=== PATIENT | male | born 1965 | race African-American/Black ===

== ENCOUNTER 2021-06-08 19:20 | Emergency (ER) | END 2021-06-08 23:15 | disposition home or self-care (01) | LOC: ERS 19:20 | DX: J18.9 Pneumonia, unspecified organism (principal); K21.9 Gastro-esophageal reflux disease without esophagitis; I10 Essential (primary) hypertension | CPT/HCPCS: 71045 ==

== ENCOUNTER 2021-06-12 14:59 | Emergency (ER) | END 2021-06-12 17:32 | disposition home or self-care (01) | LOC: ERS 14:59 | DX: J18.9 Pneumonia, unspecified organism (principal); I10 Essential (primary) hypertension; K21.9 Gastro-esophageal reflux disease without esophagitis | CPT/HCPCS: 99283 ==

== ENCOUNTER 2021-07-24 19:50 | Emergency (ER) | payer SELFPAY ==
[2021-07-24] MEDS ORDERED: Dicyclomine 20 MG TAB ONE (20:37)
[2021-07-24] MEDS ORDERED: Mag-Al 1200 mg/1200 mg/30 ML UDCUP ONE (20:40)
[2021-07-24 20:59] LABS: #Basophils 0.1 thou/uL (0.0-0.2); #Eosinphils 0.1 thou/uL (0.0-0.7); #Lymphocytes 2.3 thou/uL (1.20-3.40); #Monocytes 0.6 thou/uL (0.11-0.59); %Basophils 0.8 % (0.0-1.0); %Eosinophils 1.4 % (0.0-10.0); %Lymphocytes 24.9 % (21.0-51.0); %Monocytes 6.8 % (0.0-10.0); %Neutrophils 66.1 % (42.0-75.0); Hemoglobin 13.9 g/dL (14.0-18.0); Mean Corpuscular Hemoglobin 31.9 pg (27.0-31.0); Mean Corpuscular Volume 96.7 fL (78.0-98.0); Mean Platelet Volume 8.3 fL (7.4-10.4); Platelet Count 253 thou/uL (130-400); RBC Distribution Width 15.9 % (11.5-14.5); Red Blood Cell (RBC) Count 4.34 mill/uL (4.70-6.10)
[2021-07-24 21:56] LABS: ALT (SGPT) 36 U/L (8-55); AST (SGOT) 34 U/L (5-34); Albumin 3.4 g/dL (3.5-5.0); Alkaline Phosphatase 48 U/L (40-110); Anion Gap 15 mmol/L (10-20); BUN (Urea Nitrogen) 17 mg/dL (8.4-25.7); Bilirubin, Total 0.7 mg/dL (0.2-1.2); Calc. Creatinine Clearance 0 mL/min (70-130); Calcium 8.4 mg/dL (7.8-10.44); Carbon Dioxide 20 mmol/L (22-29); Chloride 108 mmol/L (98-107); Globulin 2.1 g/dL (2.4-3.5); Glucose 116 mg/dL (70-105); Potassium 3.4 mmol/L (3.5-5.1); Protein, Total 5.5 g/dL (6.0-8.3); Sodium 140 mmol/L (136-145)
== END 2021-07-24 22:26 | disposition home or self-care (01) ==
LOC: ERS 19:50
DX: K21.9 Gastro-esophageal reflux disease without esophagitis (principal); I10 Essential (primary) hypertension
CPT/HCPCS: 36415; 80053; 83690; 85025; 99284

== ENCOUNTER 2021-09-14 08:49 | Emergency (ER) | payer SELFPAY ==
[2021-09-14] MEDS ORDERED: Famotidine 20 MG TAB ONE (10:44)
[2021-09-14] MEDS ORDERED: Lisinopril 10 MG TAB ONE (10:44)
[2021-09-14] MEDS ORDERED: Aspirin 81 mg Enteric Coated Tablet ONE (10:44)
[2021-09-14 10:55] LABS: #Eosinphils 0.1 thou/uL (0.0-0.7); #Lymphocytes 1.8 thou/uL (1.20-3.40); #Monocytes 0.5 thou/uL (0.11-0.59); #Neutrophils 5.6 thou/uL (1.40-6.50); %Basophils 0.4 % (0.0-1.0); %Eosinophils 1.4 % (0.0-10.0); %Lymphocytes 22.3 % (21.0-51.0); %Neutrophils 69.9 % (42.0-75.0); Hemoglobin 14.2 g/dL (14.0-18.0); Mean Corpuscular HGB CONC 32.7 g/dL (32.0-36.0); Mean Corpuscular Hemoglobin 31.4 pg (27.0-31.0); Mean Corpuscular Volume 96.1 fL (78.0-98.0); Mean Platelet Volume 8.6 fL (7.4-10.4); Platelet Count 220 thou/uL (130-400); RBC Distribution Width 14.9 % (11.5-14.5); Red Blood Cell (RBC) Count 4.54 mill/uL (4.70-6.10)
[2021-09-14 11:30] LABS: ALT (SGPT) 22 U/L (8-55); AST (SGOT) 29 U/L (5-34); Albumin 3.1 g/dL (3.5-5.0); Alkaline Phosphatase 57 U/L (40-110); Anion Gap 11 mmol/L (10-20); BUN (Urea Nitrogen) 14 mg/dL (8.4-25.7); Bilirubin, Total 0.6 mg/dL (0.2-1.2); Calc. Creatinine Clearance 0 mL/min (70-130); Calcium 8.2 mg/dL (7.8-10.44); Carbon Dioxide 24 mmol/L (22-29); Chloride 108 mmol/L (98-107); Glucose 107 mg/dL (70-105); Potassium 3.7 mmol/L (3.5-5.1); Protein, Total 5.1 g/dL (6.0-8.3); Sodium 139 mmol/L (136-145)
[2021-09-14 11:46] LABS: CKMB 2.5 ng/mL (0-6.6)
== END 2021-09-14 12:45 | disposition left against medical advice (07) ==
LOC: ERS 08:49
DX: I12.9 Hypertensive chronic kidney disease with stage 1 through stage 4 chronic kidney disease, or unspecified chronic kidney disease (principal); N18.9 Chronic kidney disease, unspecified; R77.8 Other specified abnormalities of plasma proteins; K21.9 Gastro-esophageal reflux disease without esophagitis; Z79.899 Other long term (current) drug therapy
CPT/HCPCS: 36415; 71045; 80053; 82553; 84484; 85025; 93005

== ENCOUNTER 2021-09-14 14:28 | Inpatient (IN) | payer SELFPAY ==
[2021-09-14] MEDS ORDERED: Labetalol HCl 100 MG/20 ML VIAL ONE (15:02)
[2021-09-14 15:52] LABS: Troponin I 0.033 ng/mL (< 0.028)
[2021-09-14] MEDS ORDERED: Ondansetron PF 4 MG/2 ML Vial ONE (16:35)
[2021-09-14] MEDS ORDERED: Ondansetron PF 4 MG/2 ML Vial IVP PRN (16:41)
[2021-09-14] MEDS ORDERED: Ondansetron ODT 4 MG TAB PO PRN (16:41)
[2021-09-14] MEDS ORDERED: Lidocaine 2% Viscous Solution 10 ML, Aluminum & Magnesium Hydroxide 30 ML SSW SCH (16:45)
[2021-09-14] MEDS ORDERED: Labetalol HCl 100 MG/20 ML VIAL SLOW IVP PRN (16:59)
[2021-09-14 17:42] VITALS: BMI 40.0
[2021-09-14] MEDS: Sodium Chloride 0.9% 1,000 ML IV SCH (18:43)
[2021-09-14 18:57] LABS: Hemoglobin A1c 7.6 % (4.0-6.0)
[2021-09-14 19:43] LABS: CKMB 2.7 ng/mL (0-6.6)
[2021-09-14] MEDS: Pantoprazole 40 MG VIAL IVP SCH (20:11)
[2021-09-14 20:27] LABS: SARS-CoV-2 NAA Rapid Test Not Detected (NotDetected)
[2021-09-14] MEDS ORDERED: Amlodipine 5 MG TAB PO SCH (21:00)
[2021-09-14 22:42] LABS: Troponin I 0.035 ng/mL (< 0.028)
[2021-09-15 04:30] LABS: #Basophils 0.1 thou/uL (0.0-0.2); #Eosinphils 0.1 thou/uL (0.0-0.7); #Lymphocytes 2.7 thou/uL (1.20-3.40); #Monocytes 0.6 thou/uL (0.11-0.59); #Neutrophils 5.4 thou/uL (1.40-6.50); %Basophils 0.6 % (0.0-1.0); %Eosinophils 1.2 % (0.0-10.0); %Lymphocytes 30.5 % (21.0-51.0); %Monocytes 6.7 % (0.0-10.0); %Neutrophils 60.9 % (42.0-75.0); Hemoglobin 14.2 g/dL (14.0-18.0); Mean Corpuscular HGB CONC 31.4 g/dL (32.0-36.0); Mean Corpuscular Hemoglobin 30.2 pg (27.0-31.0); Mean Corpuscular Volume 96.2 fL (78.0-98.0); Mean Platelet Volume 8.5 fL (7.4-10.4); Platelet Count 247 thou/uL (130-400); RBC Distribution Width 15.5 % (11.5-14.5); White Blood Cell (WBC) Count 8.8 thou/uL (4.8-10.8)
[2021-09-15 04:44] LABS: Anion Gap 10 mmol/L (10-20); BUN (Urea Nitrogen) 17 mg/dL (8.4-25.7); Calc. Creatinine Clearance 92 mL/min (70-130); Calcium 8.1 mg/dL (7.8-10.44); Carbon Dioxide 24 mmol/L (22-29); Cardiac Risk 4.2 (Less than 4.5); Chloride 109 mmol/L (98-107); Cholesterol 129 mg/dl (< 200 Desired); Glucose 101 mg/dL (70-105); HDL Cholesterol 31 mg/dL (>60 Neg Risk); LDL Cholesterol, Calculated 75 mg/dL; Potassium 3.7 mmol/L (3.5-5.1); Sodium 139 mmol/L (136-145); Triglycerides 114 mg/dL (Less than 150)
[2021-09-15] MEDS: Sodium Chloride 0.9% 1,000 ML IV SCH (07:59)
[2021-09-15] MEDS: Amlodipine 5 MG TAB PO SCH (07:59)
[2021-09-15] MEDS: Pantoprazole 40 MG VIAL IVP SCH ×2 (08:00→20:45)
[2021-09-15] MEDS ORDERED: Regadenoson 0.4 MG/5 ML SYRINGE ONE (09:28)
[2021-09-15] MEDS ORDERED: Atenolol 25 MG TAB PO SCH (15:45)
[2021-09-15] MEDS ORDERED: Dextrose 5% in Water 1,000 ML IV PRN (16:11)
[2021-09-15] MEDS ORDERED: HumaLOG 300 UNITS/3 ML VIAL SC PRN (16:11)
[2021-09-15] MEDS ORDERED: Dextrose 50% Abboject 50 ML SYRINGE SLOW IVP PRN (16:11)
[2021-09-16] MEDS: Sodium Chloride 0.9% 1,000 ML IV SCH (01:56)
[2021-09-16] MEDS ORDERED: Calcium Carbonate 500 MG ChewTAB PO SCH (02:00)
[2021-09-16] MEDS ORDERED: Atenolol 25 MG TAB PO SCH (09:00)
[2021-09-16] MEDS ORDERED: Lisinopril 10 MG TAB PO SCH (09:00)
[2021-09-16] MEDS ORDERED: Aspirin 81 mg Enteric Coated Tablet PO SCH (09:00)
[2021-09-16] MEDS: Amlodipine 5 MG TAB PO SCH (10:07)
[2021-09-16] MEDS: Pantoprazole 40 MG VIAL IVP SCH (10:09)
[2021-09-16 11:26] LABS: #Basophils 0.1 thou/uL (0.0-0.2); #Eosinphils 0.1 thou/uL (0.0-0.7); #Monocytes 0.6 thou/uL (0.11-0.59); #Neutrophils 5.6 thou/uL (1.40-6.50); %Basophils 0.7 % (0.0-1.0); %Eosinophils 0.8 % (0.0-10.0); %Lymphocytes 23.9 % (21.0-51.0); %Monocytes 6.7 % (0.0-10.0); %Neutrophils 67.9 % (42.0-75.0); Mean Corpuscular HGB CONC 32.6 g/dL (32.0-36.0); Mean Corpuscular Volume 95.3 fL (78.0-98.0); Mean Platelet Volume 8.3 fL (7.4-10.4); Platelet Count 253 thou/uL (130-400); RBC Distribution Width 15.4 % (11.5-14.5); Red Blood Cell (RBC) Count 4.82 mill/uL (4.70-6.10); White Blood Cell (WBC) Count 8.2 thou/uL (4.8-10.8)
[2021-09-16 11:42] LABS: Anion Gap 11 mmol/L (10-20); BUN (Urea Nitrogen) 17 mg/dL (8.4-25.7); Calc. Creatinine Clearance 98 mL/min (70-130); Calcium 8.2 mg/dL (7.8-10.44); Carbon Dioxide 22 mmol/L (22-29); Chloride 107 mmol/L (98-107); Glucose 104 mg/dL (70-105); Sodium 136 mmol/L (136-145)
[2021-09-16 12:19] VITALS: BP 149/100; TEMP 97.9
== END 2021-09-16 15:14 | disposition home or self-care (01) | DRG 305 ==
LOC: ERS 14:28 → 2SW 15:18 → OBSVTOIN 09-15 15:32
PROVIDERS: ADMIT Hospitalist; ATTEND Internal Medicine
DX: I16.1 Hypertensive emergency (principal); N17.9 Acute kidney failure, unspecified; I42.9 Cardiomyopathy, unspecified; I16.0 Hypertensive urgency; K21.9 Gastro-esophageal reflux disease without esophagitis; R07.9 Chest pain, unspecified; I10 Essential (primary) hypertension; E11.9 Type 2 diabetes mellitus without complications; Z20.822 Contact with and (suspected) exposure to COVID-19; Z91.14 Patient's other noncompliance with medication regimen; Z88.1 Allergy status to other antibiotic agents
CPT/HCPCS: 36415; 36416; 78452; 80048; 80061; 82553; 83036; 85025; 93005; 93017; 94760; 96374; 96375; 96376; A9500; C9113; G0378; J2405; J2785; J7050; U0002

== ENCOUNTER 2023-05-30 08:13 | Inpatient (IN) | payer SELFPAY ==
[2023-05-30] MEDS ORDERED: Acetaminophen 500 MG TAB ONE (08:48)
[2023-05-30] MEDS ORDERED: Ibuprofen 200 MG TAB ONE (08:48)
[2023-05-30] MEDS ORDERED: Ondansetron ODT 4 MG TAB ONE (08:49)
[2023-05-30 09:02] LABS: #Basophils 0.1 thou/uL (0.0-0.2); #Eosinphils 0.1 thou/uL (0.0-0.7); #Monocytes 0.5 thou/uL (0.11-0.59); %Basophils 0.6 % (0.0-1.0); %Eosinophils 0.6 % (0.0-10.0); %Monocytes 5.8 % (0.0-10.0); %Neutrophils 72.6 % (42.0-75.0); Hematocrit 45.9 % (42.0-52.0); Hemoglobin 15.5 g/dL (14.0-18.0); Mean Corpuscular HGB CONC 33.8 g/dL (32.0-36.0); Mean Platelet Volume 11.5 fL (7.4-10.4); Platelet Count 236 10x3/uL (130-400); RBC Distribution Width 17.6 % (11.5-14.5); Red Blood Cell (RBC) Count 5.16 mill/uL (4.70-6.10); White Blood Cell (WBC) Count 8.3 10x3/uL (4.8-10.8)
[2023-05-30 09:39] LABS: SARS-CoV-2 NAA Rapid Test Not Detected (NotDetected)
[2023-05-30] MEDS ORDERED: Furosemide 40 MG/4 ML VIAL ONE ×2 (10:12→13:15)
[2023-05-30 10:42] LABS: Troponin I 0.019 ng/mL (< 0.028)
[2023-05-30] MEDS ORDERED: Iopamidol-370 76% 500 ML MDV (1 ML CHARGE) ONE (10:44)
[2023-05-30 11:09] LABS: Albumin 3.6 g/dL (3.5-5.0)
[2023-05-30] MEDS ORDERED: Ondansetron PF 4 MG/2 ML Vial ONE (11:09)
[2023-05-30] MEDS ORDERED: Morphine 4 MG/ML VIAL ONE (11:09)
[2023-05-30 11:10] LABS: Calcium 8.8 mg/dL (7.8-10.44); Chloride 106 mmol/L (98-107); Potassium 4.1 mmol/L (3.5-5.1); Sodium 140 mmol/L (136-145)
[2023-05-30 11:11] LABS: Globulin 2.3 g/dL (2.4-3.5); Glucose 97 mg/dL (70-105); Protein, Total 5.9 g/dL (6.0-8.3)
[2023-05-30 11:13] LABS: Anion Gap 17 mmol/L (10-20); Bilirubin, Total 1.2 mg/dL (0.2-1.2); Carbon Dioxide 21 mmol/L (22-29)
[2023-05-30 11:13] LABS: Bacteria/HPF None Seen HPF (None Seen); Bilirubin Negative (Negative); Blood, Urine Negative (Negative); CAUTI Indications for Culture Pelvic or flank pain; Clarity Clear (Clear); Glucose, Urine (Dipstick) Greater than 1000 mg/dL (Negative); Ketone, Urine Negative (Negative); Leukocyte Negative Leu/uL (Negative); Nitrite Negative (Negative); Protein, Urine (Dipstick) 50 mg/dL (Neg-Trace); RBC/HPF 0-3 HPF (0-3); Specific Gravity, Urine 1.025 (1.002-1.036); Squamous Epithelial 0-3 HPF (0-3); Urobilinogen Normal mg/dL (Less than 2); WBC/HPF 0-3 HPF (0-3); pH, Urine 5.5 (5.0-9.0)
[2023-05-30 11:14] LABS: Alkaline Phosphatase 59 U/L (40-110); Calc. Creatinine Clearance 0 mL/min (70-130); Estimated GFR 53
[2023-05-30 11:15] LABS: Urine Culture Reflex No No
[2023-05-30 11:15] LABS: BUN (Urea Nitrogen) 21 mg/dL (8.4-25.7)
[2023-05-30 11:16] LABS: AST (SGOT) 53 U/L (5-34)
[2023-05-30 11:17] LABS: ALT (SGPT) 73 U/L (8-55); Lipase 13 U/L (8-78)
[2023-05-30] MEDS ORDERED: Aspirin Chewable 81 MG TAB ONE (11:53)
[2023-05-30] MEDS ORDERED: Ondansetron PF 4 MG/2 ML Vial IVP PRN (12:19)
[2023-05-30] MEDS ORDERED: Ondansetron ODT 4 MG TAB PO PRN (12:19)
[2023-05-30 12:53] LABS: Hemoglobin A1c 5.7 % (4.0-6.0)
[2023-05-30 13:10] LABS: Troponin I 0.034 ng/mL (< 0.028)
[2023-05-30] MEDS: Furosemide 40 MG/4 ML VIAL SLOW IVP SCH (13:32)
[2023-05-30 17:33] LABS: Troponin I 0.042 ng/mL (< 0.028)
[2023-05-30 18:17] VITALS: BMI 35.4
[2023-05-30] MEDS ORDERED: Lisinopril 10 MG TAB PO SCH (20:45)
[2023-05-30] MEDS: Atorvastatin Calcium 40 MG TAB PO SCH (21:05)
[2023-05-30 23:53] LABS: Amphetamine Not Detected (NotDetected); Barbiturates Screen Not Detected (NotDetected); Benzodiazepine Screen Not Detected (NotDetected); Cocaine Metabolite Screen Detected (NotDetected); Methadone Not Detected (NotDetected); Methamphetamine Not Detected (NotDetected); Opiate Screen Detected (NotDetected); Oxycodone Screen Not Detected (NotDetected); Phencyclidine (PCP) Not Detected (NotDetected); THC/Cannabinoid Screen Detected (NotDetected); Tricyclic Screen Not Detected (NotDetected)
[2023-05-31 03:37] LABS: #Eosinphils 0.1 thou/uL (0.0-0.7); #Monocytes 0.6 thou/uL (0.11-0.59); #Neutrophils 4.3 thou/uL (1.40-6.50); %Basophils 0.5 % (0.0-1.0); %Eosinophils 1.9 % (0.0-10.0); %Lymphocytes 31.3 % (21.0-51.0); %Monocytes 8.2 % (0.0-10.0); %Neutrophils 57.8 % (42.0-75.0); Hematocrit 44.6 % (42.0-52.0); Hemoglobin 15.1 g/dL (14.0-18.0); Mean Corpuscular HGB CONC 33.9 g/dL (32.0-36.0); Mean Corpuscular Hemoglobin 30.1 pg (27.0-31.0); Mean Corpuscular Volume 88.8 fl (78.0-98.0); Mean Platelet Volume 11.2 fL (7.4-10.4); Platelet Count 217 10x3/uL (130-400); RBC Distribution Width 17.3 % (11.5-14.5); Red Blood Cell (RBC) Count 5.02 mill/uL (4.70-6.10); White Blood Cell (WBC) Count 7.4 10x3/uL (4.8-10.8)
[2023-05-31 04:17] LABS: Anion Gap 12 mmol/L (10-20); BUN (Urea Nitrogen) 18 mg/dL (8.4-25.7); Calc. Creatinine Clearance 95 mL/min (70-130); Calcium 8.4 mg/dL (7.8-10.44); Carbon Dioxide 26 mmol/L (22-29); Cardiac Risk 5.2 (Less than 4.5); Chloride 103 mmol/L (98-107); Cholesterol 136 mg/dl (< 200 Desired); Estimated GFR 58; Glucose 99 mg/dL (70-105); HDL Cholesterol 26 mg/dL (>60 Neg Risk); LDL Cholesterol, Calculated 88 mg/dL; Potassium 3.4 mmol/L (3.5-5.1); Sodium 138 mmol/L (136-145); Triglycerides 112 mg/dL (Less than 150)
[2023-05-31] MEDS ORDERED: Potassium Chloride 20 MEQ TAB PO SCH ×4 (06:15→22:00)
[2023-05-31] MEDS: Furosemide 40 MG/4 ML VIAL SLOW IVP SCH ×2 (06:32→13:40)
[2023-05-31] MEDS ORDERED: Carvedilol 6.25 MG TAB PO SCH (08:00)
[2023-05-31 08:03] LABS: Magnesium 2.2 mg/dL (1.6-2.6)
[2023-05-31] MEDS: Aspirin Chewable 81 MG TAB PO SCH (08:46)
[2023-05-31] MEDS ORDERED: Lisinopril 10 MG TAB PO SCH (09:00)
[2023-05-31] MEDS ORDERED: Atenolol 25 MG TAB PO SCH (09:00)
[2023-05-31] MEDS ORDERED: Empagliflozin 10 MG TAB PO SCH (09:00)
[2023-05-31] MEDS: Aspirin 81 mg Enteric Coated Tablet PO SCH (09:56)
[2023-05-31] MEDS: Acetaminophen 325 MG TAB PO PRN ×2 (15:50→22:14)
[2023-05-31] MEDS: Carvedilol 25 MG TAB PO SCH (17:22)
[2023-05-31] MEDS: Lisinopril 10 MG TAB PO SCH (20:21)
[2023-05-31] MEDS: Atorvastatin Calcium 40 MG TAB PO SCH (20:21)
[2023-05-31] MEDS ORDERED: Electrolyte Replacement Protocol 1 EACH FS SCH (21:45)
[2023-05-31 22:24] LABS: Anion Gap 11 mmol/L (10-20); BUN (Urea Nitrogen) 20 mg/dL (8.4-25.7); Calc. Creatinine Clearance 79 mL/min (70-130); Calcium 8.2 mg/dL (7.8-10.44); Carbon Dioxide 26 mmol/L (22-29); Chloride 105 mmol/L (98-107); Estimated GFR 50; Glucose 115 mg/dL (70-105); Magnesium 2.1 mg/dL (1.6-2.6); Potassium 4.4 mmol/L (3.5-5.1); Sodium 138 mmol/L (136-145)
[2023-06-01 04:45] LABS: #Eosinphils 0.1 thou/uL (0.0-0.7); #Monocytes 0.6 thou/uL (0.11-0.59); #Neutrophils 5.6 thou/uL (1.40-6.50); %Basophils 0.5 % (0.0-1.0); %Eosinophils 1.6 % (0.0-10.0); %Lymphocytes 22.8 % (21.0-51.0); %Monocytes 7.4 % (0.0-10.0); %Neutrophils 67.3 % (42.0-75.0); Hematocrit 42.3 % (42.0-52.0); Hemoglobin 14.1 g/dL (14.0-18.0); Mean Corpuscular HGB CONC 33.3 g/dL (32.0-36.0); Mean Corpuscular Hemoglobin 29.6 pg (27.0-31.0); Mean Corpuscular Volume 88.9 fl (78.0-98.0); Mean Platelet Volume 11.3 fL (7.4-10.4); Platelet Count 189 10x3/uL (130-400); RBC Distribution Width 17.2 % (11.5-14.5); Red Blood Cell (RBC) Count 4.76 mill/uL (4.70-6.10); White Blood Cell (WBC) Count 8.4 10x3/uL (4.8-10.8)
[2023-06-01 05:10] LABS: Anion Gap 9 mmol/L (10-20); BUN (Urea Nitrogen) 17 mg/dL (8.4-25.7); Calc. Creatinine Clearance 90 mL/min (70-130); Calcium 8.1 mg/dL (7.8-10.44); Carbon Dioxide 27 mmol/L (22-29); Chloride 105 mmol/L (98-107); Estimated GFR 58; Glucose 91 mg/dL (70-105); Magnesium 2.2 mg/dL (1.6-2.6); Potassium 4.4 mmol/L (3.5-5.1); Sodium 137 mmol/L (136-145)
[2023-06-01] MEDS: Furosemide 40 MG/4 ML VIAL SLOW IVP SCH (05:46)
[2023-06-01] MEDS ORDERED: Communication Order-Pharmacy FS SCH ×2 (07:45)
[2023-06-01] MEDS: Carvedilol 25 MG TAB PO SCH ×2 (08:03→16:56)
[2023-06-01] MEDS: hydrALAZINE 25 MG TAB PO SCH ×3 (08:03→20:40)
[2023-06-01] MEDS: Aspirin 81 mg Enteric Coated Tablet PO SCH (08:04)
[2023-06-01] MEDS: Isosorbide Dinitrate 20 MG TAB PO SCH ×3 (08:04→20:40)
[2023-06-01] MEDS: Furosemide 40 MG TAB PO SCH (08:05)
[2023-06-01] MEDS: Aspirin Chewable 81 MG TAB PO SCH (08:06)
[2023-06-01] MEDS: Lisinopril 10 MG TAB PO SCH ×2 (08:12→20:40)
[2023-06-01] MEDS: Sodium Chloride 0.45% 1,000 ML IV SCH ×2 (08:15→21:01)
[2023-06-01] MEDS ORDERED: Lidocaine 1% PF 5 ML VIAL ONE (10:11)
[2023-06-01] MEDS ORDERED: Heparin 10,000 UNITS/ 10 ML VIAL ONE (10:11)
[2023-06-01] MEDS ORDERED: Midazolam HCl 2 mg/2 ml Vial ONE (11:41)
[2023-06-01] MEDS ORDERED: fentaNYL 50 mcg/mL 1 mL Vial ONE (11:41)
[2023-06-01] MEDS ORDERED: Morphine 4 MG/ML VIAL ONE (12:01)
[2023-06-01] MEDS ORDERED: hydrALAZINE 20 MG/ML VIAL ONE (12:05)
[2023-06-01] MEDS ORDERED: Sodium Chloride 0.9% 200 ML IV PRN (12:32)
[2023-06-01] MEDS ORDERED: Nitroglycerin 0.4 MG TAB (25 Tab Bottle) SL PRN (12:32)
[2023-06-01] MEDS ORDERED: Acetaminophen/Codeine 30-300mg Tablet PO PRN ×2 (12:32)
[2023-06-01] MEDS: Atorvastatin Calcium 40 MG TAB PO SCH (20:40)
[2023-06-02 06:38] LABS: #Eosinphils 0.1 thou/uL (0.0-0.7); #Monocytes 0.6 thou/uL (0.11-0.59); #Neutrophils 4.2 thou/uL (1.40-6.50); %Basophils 0.6 % (0.0-1.0); %Eosinophils 1.8 % (0.0-10.0); %Lymphocytes 26.6 % (21.0-51.0); %Monocytes 8.2 % (0.0-10.0); %Neutrophils 62.5 % (42.0-75.0); Hematocrit 41.1 % (42.0-52.0); Hemoglobin 13.5 g/dL (14.0-18.0); Mean Corpuscular HGB CONC 32.8 g/dL (32.0-36.0); Mean Corpuscular Hemoglobin 29.7 pg (27.0-31.0); Mean Corpuscular Volume 90.5 fl (78.0-98.0); Mean Platelet Volume 11.5 fL (7.4-10.4); Platelet Count 209 10x3/uL (130-400); RBC Distribution Width 17.2 % (11.5-14.5); Red Blood Cell (RBC) Count 4.54 mill/uL (4.70-6.10); White Blood Cell (WBC) Count 6.7 10x3/uL (4.8-10.8)
[2023-06-02 07:09] LABS: Anion Gap 12 mmol/L (10-20); BUN (Urea Nitrogen) 14 mg/dL (8.4-25.7); Calc. Creatinine Clearance 115 mL/min (70-130); Carbon Dioxide 24 mmol/L (22-29); Chloride 106 mmol/L (98-107); Estimated GFR 72; Glucose 89 mg/dL (70-105); Magnesium 2.1 mg/dL (1.6-2.6); Potassium 4.1 mmol/L (3.5-5.1); Sodium 138 mmol/L (136-145)
[2023-06-02] MEDS ORDERED: Spironolactone 25 MG TAB PO SCH (08:00)
[2023-06-02] MEDS: Aspirin 81 mg Enteric Coated Tablet PO SCH (08:35)
[2023-06-02] MEDS: Isosorbide Dinitrate 20 MG TAB PO SCH ×2 (08:36→15:38)
[2023-06-02] MEDS: hydrALAZINE 25 MG TAB PO SCH ×2 (08:36→15:38)
[2023-06-02] MEDS: Lisinopril 10 MG TAB PO SCH (08:36)
[2023-06-02] MEDS: Aspirin Chewable 81 MG TAB PO SCH (08:36)
[2023-06-02] MEDS: Carvedilol 25 MG TAB PO SCH (08:36)
[2023-06-02] MEDS: Furosemide 40 MG TAB PO SCH (08:37)
[2023-06-02] MEDS: Sodium Chloride 0.45% 1,000 ML IV SCH (11:46)
[2023-06-02 15:35] VITALS: BP 137/97; TEMP 98.9
== END 2023-06-02 16:28 | disposition home or self-care (01) | DRG 286 ==
LOC: ERS 08:13 → ERHOLD 12:16 → 2SW 18:28 → OBSVTOIN 06-01 08:48
PROVIDERS: ADMIT Internal Medicine; ATTEND Family Medicine
PROC: 4A023N7 Measurement of Cardiac Sampling and Pressure, Left Heart, Percutaneous Approach (ICD-10-PCS; principal; 2023-06-01)
PROC: B2111ZZ Fluoroscopy of Multiple Coronary Arteries using Low Osmolar Contrast (ICD-10-PCS; 2023-06-01)
PROC: B2151ZZ Fluoroscopy of Left Heart using Low Osmolar Contrast (ICD-10-PCS; 2023-06-01)
DX: I13.0 Hypertensive heart and chronic kidney disease with heart failure and stage 1 through stage 4 chronic kidney disease, or unspecified chronic kidney disease (principal); I50.23 Acute on chronic systolic (congestive) heart failure; K21.9 Gastro-esophageal reflux disease without esophagitis; E11.22 Type 2 diabetes mellitus with diabetic chronic kidney disease; R10.13 Epigastric pain; N18.30 Chronic kidney disease, stage 3 unspecified; E87.6 Hypokalemia; Z88.8 Allergy status to other drugs, medicaments and biological substances; Z79.82 Long term (current) use of aspirin; Z79.899 Other long term (current) drug therapy; Z11.52 Encounter for screening for COVID-19
CPT/HCPCS: 36415; 71045; 74177; 76705; 80048; 80053; 80061; 80306; 81001; 83036; 83605; 83690; 83735; 83880; 84443; 84484; 85025; 93005; 93306; 93798; 94760; 96372; 96374; 96375; 96376; 97139; C1769; G0378; J0360; J1644; J1650; J1940; J2250; J2270; J2405; J3010; Q0162; Q9967